=== PATIENT | female | born 1985 | race Caucasian/White ===

== ENCOUNTER 2016-12-19 22:34 | Emergency (ER) | payer OTHER ==
[~2016-12-19] VITALS: Ht 147.3 cm; Wt 75.0 kg
[2016-12-19 22:36] VITALS: BP 148/94; RESP 16; O2SAT 99
--- NOTE | 2016-12-19 23:05 | ED.REPORT ---
HPI-Sore Throat ONLY HPI/PE done Dec 19, 2016 ED Provider: Johnny Gannon DO Pt is a 31 year old female with a history of tonsillitis and strep throat who presents to the ED complaining of sore throat onset 2 days ago. She c/o associated odynophagia onset yesterday. She denies fever. Pt is concerned that she is experiencing tonsillitis. Nursing Notes Stated Complaint: THROAT ISSUES Chief Complaint: ENT & Mouth Nursing Notes Reviewed: Yes Allergies: Coded Allergies: No Known Allergies (Unverified , 12/19/16) General Time Seen by MD: 23:05 Chief Complaint Sore throat Hx Obtained From: Patient Arrived By: Walk-in Onset Occurred: 2 days ago Symptom Duration: Since onset Location: : Tonsil left: Tonsil right Quality: Painful Severity: Current: Moderate Severity: Maximum: Moderate Recent Healthcare: No recent doctor visit, No recent hospitalization Similar Sx Previous: Yes Past Medical History Past Medical History Tonsillitus Strep throat Past Surgical History Denies Smoking History Unknown if Ever Smoker Social History Alcohol Use: Denies alcohol use Drug Use: Denies drug use Other Social History: Good social support Ambulatory Status Independent Review of Systems + Odynophagia Constitutional: Denies: Fever Ears / Nose / Throat: Reports: Sore throat Respiratory: Denies: Non-productive cough, Shortness of breath Complete sys rev & neg: except as marked. Physical Exam Initial Vital Signs Vital Signs (First) Date Time Temp Pulse Resp B/P Pulse Ox O2 Delivery O2 Flow Rate FiO2 12/19/16 22:36 36.2 106 16 148/94 99 Initial VS: Reviewed Head / Eyes: Atraumatic, Normocephalic, PERRL Respiratory: Breath sounds normal, Clear to auscultation, No respiratory distress Cardiovascular: Regular rate & rhythm, Heart sounds normal, Intact distal pulses Abdomen / GI: Soft, Non-tender Extremities: Vascular intact, Neuro intact Skin: Warm, Dry, No cyanosis Neurologic: Alert, Oriented, Nonfocal Psychiatric: Mood/affect normal, Behavior normal General/Constitutional: Awake, Alert, Cooperative, Not toxic appearing ENT: Atraumatic, Airway patent, Mucous membranes moist, Pharynx NL Exudative tonsillitis bilaterally. Neck: Atraumatic, Full range of motion Re-Eval/Medical Decision Med Decision/Clinical Course Centor criteria met. This is most likely group A strep. I discussed this with Rashaad. She concurs. We will treat her with twice a day amoxicillin and forego testing. Dose of dexamethasone given for the tonsillar hypertrophy. No signs of an abscess or sepsis. Source of Hx: Old records Re-Evaluation/Progress : Time of Eval: 23:20 Re-Evaluation/Progress Note: Pt rechecked. Informed pt of plan for discharge. Pt understands and agrees with plan for discharge. F/U instructions and RTER warnings given. All questions addressed. Counseled Regarding: Diagnosis, Need for follow-up, When/why to return to ED Discharge & Departure Primary Impression: Tonsillitis with exudate Disposition: Home Discharge Condition All VS Reviewed: Yes Condition: Stable Patient Instructions: Tonsillitis (ED), Strep Throat (ED) Additional Instructions: I suspect you have strep throat. Take Amoxicillin 2x daily for 10 days. Tylenol or Motrin as directed for the pain. Salt water gargles when you can. Follow up with your primary care provider in 1 week. Return to the emergency department for any new or worsening symptoms. Referrals: [facility] Scribe Attestation Portions of this note were transcribed by Fiona More. I, Dr. Gannon personally performed the history, physical exam and medical decision-making; I reviewed and confirmed the accuracy of the information in the transcribed note. Signed by: Tana Kitchen, 12/19/16 and 23:40. copies to: [facility] Johnny Gannon DO Dec 19, 2016 23:05 Fiona Wallis Dec 19, 2016 23:21
[2016-12-19] MEDS ORDERED: Dexamethasone 20 mg/2 mL Oral Solution PO ONE (23:20)
[2016-12-19 23:26] VITALS: BP 148/94; PULSE 106; RESP 16; O2SAT 99
== END 2016-12-19 23:27 | disposition home or self-care (01) ==
LOC: SED 22:34
DX: J03.90 Acute tonsillitis, unspecified (principal)